=== PATIENT | female | born 1985 | race Caucasian/White ===

== ENCOUNTER 2017-01-19 03:54 | Inpatient (IN) | payer BC, MEDICAID ==
[~2017-01-19] VITALS: Ht 154.9 cm; Wt 80.7 kg
[2017-01-19 04:32] VITALS: BP 139/89; PULSE 90; RESP 18
[2017-01-19] MEDS ORDERED: PRENAT PO (04:34)
[2017-01-19] MEDS ORDERED: FERR134T PO (04:34)
--- NOTE | 2017-01-19 04:42 | TRIAGE ---
OB Triage Datetime Report Generated by CPN: 01/19/2017 04:42 Datetime: 01/19/2017 04:13 Assessment Type: Triage Maternal Assessment Level of Consciousness: Fully Conscious DTR's/Clonus: DTRs 1+; No Clonus Headache: Denies Blurred Vision: No Respiratory Effort: Unlabored Breath Sounds, Left: Clear and Equal Breath Sounds, Right: Clear and Equal Nausea/Vomiting: Present (Annotations: NAUSEA, NO VOMITING) RUQ Epigastric Pain: Denies Lower Extremities Edema: None Degree: None Upper Extremities Edema: None Degree: None Facial Edema: None Fall Risk Assessment History of Falling: (0) No Secondary Diagnosis: (0) No Ambulatory Aid: (0) Bedrest/Nurse Assist IV Therapy: (0) No Gait: (10) Weak Mental Status: (0) Oriented to Own Ability Fall Score: 10 Fall Risk Score Definition: No Risk: No action required Datetime: 01/19/2017 04:11 Time of Arrival: 01/19/2017 03:48 EGA: 39.6 Arrived By: Wheelchair Arrived From: Home Chief Complaint: [facility] SINCE 129 Movement: Present Contractions: Regular Time Contractions Began: 01/19/2017 01:30 Contractions: Q4-6 MIN Rupture of Membranes: Unsure Vaginal Bleeding: None Vaginal Discharge: Denies Recent Sexual Intercouse: Denies Abdominal Trauma: Not Applicable Patient Complaints: Contractions; Back Pain Time Provider Notified: 01/19/2017 04:20 Provider Notified: Dr Sotelo Initial Plan: VS, EFM, SVE Vaginal Exam Dilatation (cms): 2.5 Effacement (%): 90 Station: -2 Exam By: Dilshad PHILLIP Vaginal Bleeding: None Cervix, Consistency: Soft Cervix, Position: Midposition Presentation 'A': Cephalic
[2017-01-19] MEDS ORDERED: METHYLERGONOVINE 0.2 MG INJ IM PRN ×2 (05:00→15:00)
[2017-01-19] MEDS ORDERED: AMPICILLIN 2 GM/NS (PMX) 100 ML IV ONE (05:00)
[2017-01-19] MEDS ORDERED: BUTORPHANOL 2 MG INJ IV PRN (05:00)
[2017-01-19] MEDS ORDERED: LACTATED RINGER'S 1,000 ML IV PRN (05:00)
[2017-01-19] MEDS ORDERED: IBUPROFEN 600 MG TAB PO PRN (05:00)
[2017-01-19] MEDS ORDERED: CARBOPROST 250 MCG INJ IM PRN ×2 (05:00→15:00)
[2017-01-19] MEDS ORDERED: OXYTOCIN 30 UNITS/LR 500 ML IV SCH ×2 (05:00)
[2017-01-19] MEDS ORDERED: OXYTOCIN 30 UNITS/LR 500 ML IV PRN ×3 (05:00→15:00)
[2017-01-19] MEDS ORDERED: MISOPROSTOL 200 MCG TAB PR PRN ×2 (05:00→15:00)
[2017-01-19] MEDS ORDERED: LIDOCAINE 1% (MPF) 30 ML INJ INJ PRN (05:00)
[2017-01-19 05:04] LABS: ADD SCAN DIFF NO
[2017-01-19 05:08] LABS: ADD UMIC YES; URINE BILIRUBIN (Dip) NEGATIVE (NEGATIVE); URINE BLOOD (Dip) 3+ (NEGATIVE); URINE COLOR YELLOW (YELLOW); URINE GLUCOSE (Dip) NEGATIVE (NEGATIVE); URINE KETONES (Dip) 3+ (NEGATIVE); URINE LEUKOCYTE ESTERASE (Dip) TRACE (NEGATIVE); URINE NITRITE (Dip) NEGATIVE (NEGATIVE); URINE TOTAL PROTEIN (Dip) NEGATIVE (NEGATIVE); URINE UROBILINOGEN (Dip) 1.0 E.U./dL (0.1-1.0)
[2017-01-19 05:09] LABS: BASOPHIL # 0.1 10^3/ul (0.0-0.1); BASOPHILS % 0.8 % (0.0-2.0); EOSINOPHILS # 0.2 10^3/ul (0.0-0.5); EOSINOPHILS % 1.3 % (0.0-7.0); HEMATOCRIT 38.1 % (37.0-47.0); LYMPHOCYTES # 2.9 10^3/ul (0.8-2.9); LYMPHOCYTES % 19.4 % (15.0-51.0); MEAN CORPUSCULAR HEMOGLOBIN 29.1 pg (29.0-33.0); MEAN CORPUSCULAR HGB CONC 34.1 g/dl (32.0-37.0); MEAN CORPUSCULAR VOLUME 85.2 fl (82.0-101.0); MEAN PLATELET VOLUME 10.5 fl (7.4-10.4); MONOCYTE # 0.9 10^3/ul (0.3-0.9); MONOCYTES % 5.8 % (0.0-11.0); NEUTROPHILS % 72.4 % (39.0-77.0); PLATELET COUNT 287 10^3/UL (140-415); RED BLOOD COUNT 4.47 10^6/ul (4.20-5.40); RED CELL DISTRIBUTION WIDTH 14.3 % (11.5-14.5); WHITE BLOOD COUNT 15.2 10^3/ul (4.8-10.8)
[2017-01-19 05:17] LABS: INR 0.92; PROTIME 12.4 Sec (12.2-14.2)
[2017-01-19 05:17] LABS: BACTERIA,URINE MANY; MUCUS,URINE MODERATE; SQUAMOUS EPITHELIAL CELL,UR MODERATE; URINE RBCS 0-2 /HPF (0)
[2017-01-19 05:18] LABS: PARTIAL THROMBOPLASTIN TIME 27.6 Sec (25.0-35.0)
[2017-01-19 05:22] LABS: BARBITURATES Negative (NEGATIVE)
[2017-01-19 05:23] LABS: CANNABINOIDS Negative (NEGATIVE)
[2017-01-19 05:27] LABS: ALANINE AMINOTRANSFERASE 23 IU/L (13-69); ALBUMIN 3.7 g/dl (3.3-4.9); ALBUMIN/GLOBULIN RATIO 0.97; ALKALINE PHOSPHATASE 230 IU/L (42-121); ANION GAP 12 (8-16); ASPARTATE AMINO TRANSFERASE 17 IU/L (15-46); BILIRUBIN,INDIRECT 0.2 mg/dl (0-1.1); BILIRUBIN,TOTAL 0.2 mg/dl (0.2-1.3); BLOOD UREA NITROGEN 6 mg/dl (7-20); CALCIUM 9.4 mg/dl (8.4-10.2); CARBON DIOXIDE 20 mmol/L (21-31); CHLORIDE 110 mmol/L (97-110); CREATININE 0.47 mg/dl (0.44-1.00); GLUCOSE 94 mg/dl (70-220); POTASSIUM 3.6 mmol/L (3.5-5.1); SODIUM 138 mmol/L (135-144); TOTAL PROTEIN 7.5 g/dl (6.1-8.1)
[2017-01-19 05:30] LABS: BENZODIAZEPINES Negative (NEGATIVE); COCAINE Negative (NEGATIVE); OPIATES Negative (NEGATIVE)
[2017-01-19] MEDS ORDERED: FENTAnyl 2MCG/ML-ROPIV 0.2% 100 ML ONE (05:44)
--- NOTE | 2017-01-19 05:44 | HP ---
Date/Time of Note Date/Time of Note DATE: 01/19/17 TIME: 05:43 OB - History Hx of Present Free Text/Dictation Presented with contractions IUP at 39 weeks and 6 days she was noted to be 2-3/90/-2 GBS negative care in [place] with Dr. Robertson and then with Dr. Estelita Ambriz Records not available. will be obtained in am Denies any complications during her course Last Menstrual Period: Jan 20, 2017 : 1 Para: 0 Care: Limited Care Obstetrical Complications: None Past Family/Social History * Past Medical, Surgical, Family and Obstetric Histories reviewed from chart. Blood Type: A+ Rubella: immune RPR/VDRL: Negative GBS Status: Negative HBsAG: Negative OB Admission Exam Vital Signs Vital Signs Vital Signs Date Time Temp Pulse Resp B/P Pulse Ox O2 Delivery O2 Flow Rate FiO2 01/19/17 04:32 97.9 90 18 139/89 Room Air Physical Exam HEENT: WNL Abdomen: WNL Extremities: Normal Reflexes: Normal Cervical Dilatation: 2cm Effacement: 100% Station: -2 Membranes: Intact Heart Rate: 120's Accelerations: Accelerations Present Decelerations: No Decelerations Varibility: Moderate Contractions on Admission: < 5 Minutes Apart Intensity: Moderate Last 72 hours Lab Results CBC & BMP 01/19/17 04:48 Liver Function Test 01/19/17 04:48 Alanine Aminotransferase (ALT/SGPT) 23 Albumin 3.7 Alkaline Phosphatase 230 H Aspartate Amino Transf (AST/SGOT) 17 Direct Bilirubin 0.00 Total Protein 7.5 OB Assessment/Plan Other Assessment: early labor GBS negative Admit Plan: Expectant Management Other plan: Epidural when patient requests Anticipate SRIKANTH BONILLA MD Jan 19, 2017 05:44
[2017-01-19] MEDS: LACTATED RINGER'S 1,000 ML IV SCH ×2 (05:56→13:29)
[2017-01-19] MEDS ORDERED: NALOXONE (0.4 MG/ML) INJ IV PRN (06:00)
[2017-01-19] MEDS ORDERED: DIPHENHYDRAMINE 50 MG INJ IV PRN (06:00)
[2017-01-19] MEDS ORDERED: ONDANSETRON 4 MG INJ IV PRN (06:00)
[2017-01-19] MEDS ORDERED: FENTAnyl 2MCG/ML-ROPIV 0.2% 100 ML BAG EPI SCH (06:00)
[2017-01-19] MEDS ORDERED: AMPICILLIN 1 GM/NS (PMX) 50 ML IV SCH (09:00)
--- NOTE | 2017-01-19 14:50 | LDN ---
Date/Time of Note Date/Time of Note DATE: 01/19/17 TIME: 14:47 Delivery Summary January 19, 2017 Spontaneous vaginal delivery note Placenta Delivered: Spontaneously Meconium: Thick Episiotomy: No Perineal laceration: 1 Laceration repair: 2 O chromic cat gut Anesthesia type: Epidural Estimated blood loss: 200 Sponge & Needle done & correct: Yes All needle counts correct: Yes Any foreign bodies felt in the: No Problems: Infant Delivery Information Sex Sex: female Apgars 1 Minute: 9 5 Minute: 9 Suctioning Nose & mouth suctioned at hood: Yes Delee suction performed: No Umbilical Cord Umbilical cord with: 3 Vessels Cord presentations: no nuchal cord Cord Blood was obtained: Yes Mother & Baby Disposition Disposition Mom & Baby to Maternity; Good: Yes Mom transferred to: Med/Surg SANTOS CANAS MD Jan 19, 2017 14:50
[2017-01-19] MEDS ORDERED: SENNA/DOCUSATE NA (8.6MG/50MG) TAB PO PRN (15:00)
[2017-01-19] MEDS ORDERED: DIBUCAINE 1% 30 GM OINT PR PRN (15:00)
[2017-01-19] MEDS ORDERED: LANOLIN 7 GM TUBE TOP PRN (15:00)
[2017-01-19] MEDS ORDERED: ACETAMINOPHEN 500 MG TAB PO PRN (15:00)
[2017-01-19] MEDS ORDERED: OXYCODONE/ASPIRIN (4.88/325) TAB PO PRN ×2 (15:00)
[2017-01-19] MEDS: OXYTOCIN 30 UNITS/LR 500 ML IV SCH ×2 (15:22→19:30)
[2017-01-19 16:15] VITALS: BP 136/83; PULSE 94; RESP 20
[2017-01-19 16:52] VITALS: BP 142/87; PULSE 100; RESP 20
[2017-01-19] MEDS: BENZOCAINE 20% 56 ML SPRAY TOP PRN (17:14)
[2017-01-19] MEDS: WITCH HAZEL/GLYCERIN PAD PR PRN (17:14)
[2017-01-19 17:30] VITALS: BP 135/84; PULSE 94; RESP 20
[2017-01-19 19:31] VITALS: BP 122/59; PULSE 88; RESP 18
[2017-01-20 03:35] VITALS: BP 115/78; PULSE 93; RESP 18
[2017-01-20 08:00] VITALS: BP 104/71; PULSE 86; RESP 17
[2017-01-20 08:17] LABS: ADD SCAN DIFF NO
[2017-01-20 08:34] LABS: BASOPHIL # 0.1 10^3/ul (0.0-0.1); BASOPHILS % 0.4 % (0.0-2.0); EOSINOPHILS # 0.3 10^3/ul (0.0-0.5); EOSINOPHILS % 1.5 % (0.0-7.0); HEMATOCRIT 34.1 % (37.0-47.0); HEMOGLOBIN 11.2 g/dl (12.0-16.0); LYMPHOCYTES % 19.9 % (15.0-51.0); MEAN CORPUSCULAR HEMOGLOBIN 28.9 pg (29.0-33.0); MEAN CORPUSCULAR HGB CONC 32.8 g/dl (32.0-37.0); MEAN CORPUSCULAR VOLUME 87.9 fl (82.0-101.0); MEAN PLATELET VOLUME 10.5 fl (7.4-10.4); MONOCYTE # 1.2 10^3/ul (0.3-0.9); NEUTROPHIL # 14.4 10^3/ul (1.6-7.5); NEUTROPHILS % 71.7 % (39.0-77.0); PLATELET COUNT 245 10^3/UL (140-415); RED BLOOD COUNT 3.88 10^6/ul (4.20-5.40); RED CELL DISTRIBUTION WIDTH 14.6 % (11.5-14.5); WHITE BLOOD COUNT 20.1 10^3/ul (4.8-10.8)
[2017-01-20] MEDS: MULTIVIT/MIN/FOLATE/IRON/PREN TAB PO SCH (09:19)
[2017-01-20 12:00] VITALS: BP 128/84; PULSE 77; RESP 18
[2017-01-20 13:31] LABS: RUBELLA ANTIBODY - IGG 6.04 index
[2017-01-20 16:34] VITALS: BP 127/68; PULSE 82; RESP 16
[2017-01-20 19:40] VITALS: BP 124/69; RESP 19
[2017-01-21] MEDS: IBUPROFEN 600 MG TAB PO PRN ×2 (00:07→05:54)
[2017-01-21 04:43] VITALS: BP 121/72; PULSE 70; RESP 19
--- NOTE | 2017-01-21 07:41 | PD.PPDC ---
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
--- NOTE | 2017-01-21 07:42 | DS ---
Date/Time of Note Date/Time of Note DATE: 01/21/17 TIME: 07:42 Obstetrical Discharge Record Final Diagnosis Final Diagnosis: Term delivered Vaginal Delivery Obstetrical Delivery: Spontaneous Complications Rupture of Membranes: No Condition on Discharge Physical Assessment Last Vitals: T 98.4 BP 121/72 P 70 R 19 Voiding: Yes Bowel Movement: Yes Breast: Filling Fundus: Firm Calf Tenderness: No Patient Condition: Good ELSA LUO MD Jan 21, 2017 07:42
[2017-01-21 08:15] VITALS: BP 120/60; PULSE 83; RESP 18
[2017-01-21] MEDS: WITCH HAZEL/GLYCERIN PAD PR PRN (08:34)
[2017-01-21] MEDS: BENZOCAINE 20% 56 ML SPRAY TOP PRN (08:34)
[2017-01-21] MEDS: MULTIVIT/MIN/FOLATE/IRON/PREN TAB PO SCH (08:35)
[2017-01-21] MEDS ORDERED: DIPHTH/TET/ACEL PERTUSS (ADULT) 0.5 ML VIAL IM* ONE (09:00)
== END 2017-01-21 12:40 | disposition home or self-care (01) | DRG 775 ==
LOC: OBT 03:54 → L-D 03:55 → OBT 04:25 → L-D 04:26 → PP1 16:13
PROVIDERS: ADMIT Obstetrics & Gynecology Obstetrics; ATTEND Obstetrics & Gynecology Obstetrics
PROC: 10E0XZZ Delivery of Products of Conception, External Approach (ICD-10-PCS; principal; 2017-01-19)
PROC: 0HQ9XZZ Repair Perineum Skin, External Approach (ICD-10-PCS; 2017-01-19)
PROC: 3E00X4Z Introduction of Serum, Toxoid and Vaccine into Skin and Mucous Membranes, External Approach (ICD-10-PCS; 2017-01-21)
DX: O70.0 First degree perineal laceration during delivery (principal); E03.9 Hypothyroidism, unspecified; O99.284 Endocrine, nutritional and metabolic diseases complicating childbirth; Z23 Encounter for immunization; Z3A.39 39 weeks gestation of pregnancy; Z37.0 Single live birth
CPT/HCPCS: 62319; 80053; 80307; 81001; 81003; 84560; 85025; 85610; 85730; 86592; 86762; 86900; 86901; 87340; 90715; 99464; G0463; J2590; J3010; J7120

== ENCOUNTER 2018-09-22 13:20 | Inpatient (IN) | END 2018-09-28 13:32 | disposition home or self-care (01) | DRG 833 ==

== ENCOUNTER 2018-11-24 11:27 | Inpatient (IN) | payer BC ==
[~2018-11-24] VITALS: Ht 152.4 cm; Wt 88.0 kg
[~2018-11-24 11:27] MED LIST: FERR134T PO; PRENAT PO
[2018-11-24 11:30] VITALS: Ht 152.4 cm; Wt 88.0 kg
[2018-11-24 11:31] VITALS: BP 119/70; PULSE 101; RESP 20
[2018-11-24] MEDS ORDERED: LACTATED RINGER'S 1,000 ML IV SCH (12:04)
--- NOTE | 2018-11-24 12:14 | TRIAGE ---
OB Triage Datetime Report Generated by CPN: 11/24/2018 12:12 Datetime: 11/24/2018 11:35 Time of Arrival: 11/24/2018 11:15 EGA: 36.4 Arrived By: Ambulatory Arrived From: Home Chief Complaint: LOW ABD PAIN SINCE 0600 Movement: Present Time Contractions Began: 11/24/2018 06:00 Rupture of Membranes: Denies Vaginal Discharge: Denies Recent Sexual Intercouse: Denies Abdominal Trauma: Not Applicable Patient Complaints: Other Time Provider Notified: 11/24/2018 11:36 Provider Notified: DR COSTA Initial Plan: EFM,CALL DR COSTA Datetime: 11/24/2018 11:34 Maternal Assessment Level of Consciousness: Fully Conscious DTR's/Clonus: DTRs 2+; No Clonus Headache: Denies Blurred Vision: No Respiratory Effort: Unlabored; Regular Rhythm; Equal Expansion Breath Sounds, Left: Clear and Equal Breath Sounds, Right: Clear and Equal Nausea/Vomiting: Denies RUQ Epigastric Pain: Denies Facial Edema: None Temperature Route: Axillary Fall Risk Assessment History of Falling: (0) No Secondary Diagnosis: (0) No Ambulatory Aid: (0) Bedrest/Nurse Assist IV Therapy: (0) No Gait: (0) Normal/Bedrest/Immobile Mental Status: (0) Oriented to Own Ability Fall Score: 0 Fall Risk Score Definition: No Risk: No action required Datetime: 09/28/2018 13:00 Stage of : Antepartum Datetime: 09/28/2018 12:00 Stage of : Antepartum Labor Evaluation Frequency: 0 Monitor Mode: External Pain Assessment Pain Scale: 0 Pain Presence: None/Denies Pain Type: N/A Datetime: 09/28/2018 11:00 Stage of : Antepartum Labor Evaluation Frequency: 0 Monitor Mode: External Pain Assessment Pain Scale: 0 Pain Presence: None/Denies Pain Type: N/A Datetime: 09/28/2018 10:00 Stage of : Antepartum Labor Evaluation Frequency: 0 Monitor Mode: External Pain Assessment Pain Scale: 0 Pain Presence: None/Denies Pain Type: N/A Datetime: 09/28/2018 09:00 Stage of : Antepartum Labor Evaluation Frequency: 0 Monitor Mode: External Pain Assessment Pain Scale: 0 Pain Presence: None/Denies Pain Type: N/A Datetime: 09/28/2018 08:45 Comments: US monitor off Datetime: 09/28/2018 08:44 Stage of : Antepartum Labor Evaluation Frequency: 0 Monitor Mode: External Resting Tone O'Donnell: Relaxed Contraction Comments: abdomen soft on palpation Heart Rate FHR Baseline Rate: 140 Monitor Mode: External US Variability: Moderate 6-25 bpm Accelerations: 10X10 Decelerations: None Category: Category I Pain Assessment Pain Scale: 0 Pain Presence: None/Denies Pain Type: N/A Datetime: 09/28/2018 08:15 Stage of : Antepartum Temperature Route: Oral Datetime: 09/28/2018 08:13 Comments: NST STARTED Datetime: 09/28/2018 07:45 Assessment Type: Ongoing Assessment Maternal Assessment Level of Consciousness: Fully Conscious DTR's/Clonus: DTRs 2+; No Clonus Headache: Denies Blurred Vision: No Respiratory Effort: Unlabored; Regular Rhythm; Equal Expansion Breath Sounds, Left: Clear and Equal Breath Sounds, Right: Clear and Equal Nausea/Vomiting: Denies RUQ Epigastric Pain: Denies Lower Extremities Edema: None Degree: None Upper Extremities Edema: None Degree: None Facial Edema: None Fall Risk Assessment History of Falling: (0) No Secondary Diagnosis: (0) No Ambulatory Aid: (0) Bedrest/Nurse Assist IV Therapy: (0) No Gait: (0) Normal/Bedrest/Immobile Mental Status: (0) Oriented to Own Ability Fall Score: 0 Fall Risk Score Definition: No Risk: No action required Datetime: 09/28/2018 07:00 Labor Evaluation Frequency: NONE Monitor Mode: External Resting Tone O'Donnell: Relaxed Pain Presence: None/Denies Pain Type: N/A Datetime: 09/28/2018 06:07 Stage of : Antepartum Temperature Route: IES CRAMPING Labor Evaluation Frequency: NONE Monitor Mode: External Contraction Comments: STATES + FM Pain Presence: None/Denies Datetime: 09/28/2018 06:05 Stage of : Antepartum Datetime: 09/28/2018 05:00 Labor Evaluation Frequency: NONE Monitor Mode: External Resting Tone O'Donnell: Relaxed Pain Presence: None/Denies Pain Type: N/A Pain Assessment Comments: PT SLEEPING WITH EVEN UNLABORED BREATHING Datetime: 09/28/2018 04:00 Labor Evaluation Frequency: NONE Monitor Mode: External Resting Tone O'Donnell: Relaxed Pain Presence: None/Denies Pain Type: N/A Pain Assessment Comments: PT REMAINS ASLEEP WITH EVEN UNLABORED BREATHING Datetime: 09/28/2018 03:00 Labor Evaluation Frequency: NONE Monitor Mode: External Resting Tone O'Donnell: Relaxed Pain Presence: None/Denies Pain Type: N/A Datetime: 09/28/2018 02:00 Labor Evaluation Frequency: NONE Monitor Mode: External Resting Tone O'Donnell: Relaxed Pain Presence: None/Denies Pain Type: N/A Pain Assessment Comments: PT SLEEPING WITH EVEN UNLABORED BREATHING Datetime: 09/28/2018 01:00 Labor Evaluation Frequency: none Monitor Mode: External Resting Tone O'Donnell: Relaxed Pain Presence: None/Denies Pain Type: N/A Pain Assessment Comments: Pt sleeping with even unlabored breathing. Datetime: 09/28/2018 00:28 Stage of : Antepartum Temperature Route: Oral Contraction Comments: PT DENIES CRAMPING Comments: PT STATES + FM Pain Presence: None/Denies Pain Type: N/A Pain Assessment Comments: PT DEIES EPIGASTRC PAIN Vaginal Exam Membrane Status: Intact Vaginal Bleeding: None Datetime: 09/28/2018 00:00 Labor Evaluation Frequency: NONE Monitor Mode: External Resting Tone O'Donnell: Relaxed Pain Presence: None/Denies Pain Type: N/A Datetime: 09/27/2018 23:00 Labor Evaluation Frequency: NONE Monitor Mode: External Resting Tone O'Donnell: Relaxed Pain Presence: None/Denies Pain Type: N/A Datetime: 09/27/2018 22:00 Labor Evaluation Frequency: NONE Monitor Mode: External Pain Presence: None/Denies Pain Type: N/A Datetime: 09/27/2018 21:43 Labor Evaluation Frequency: NONE Monitor Mode: External Resting Tone O'Donnell: Relaxed Heart Rate FHR Baseline Rate: 135 Monitor Mode: External US Variability: Moderate 6-25 bpm Accelerations: 15X15 Decelerations: Variable Comments: AGA Pain Presence: None/Denies Pain Type: N/A Datetime: 09/27/2018 20:52 Monitor Mode: External Monitor Mode: External US Comments: APPLIED FOR NST Datetime: 09/27/2018 20:39 Labor Evaluation Frequency: NONE Monitor Mode: External Resting Tone O'Donnell: Relaxed Pain Presence: None/Denies Pain Type: N/A Datetime: 09/27/2018 19:49 Stage of : Antepartum Assessment Type: Ongoing Assessment Maternal Assessment Level of Consciousness: Fully Conscious DTR's/Clonus: DTRs 2+; No Clonus Headache: Denies Blurred Vision: No Respiratory Effort: Unlabored; Regular Rhythm; Equal Expansion Breath Sounds, Left: Clear and Equal Breath Sounds, Right: Clear and Equal Nausea/Vomiting: Denies RUQ Epigastric Pain: Denies Lower Extremities Edema: None Degree: None Upper Extremities Edema: None Degree: None Facial Edema: None Temperature Route: Oral Fall Risk Assessment History of Falling: (0) No Secondary Diagnosis: (0) No Ambulatory Aid: (0) Bedrest/Nurse Assist IV Therapy: (0) No Gait: (0) Normal/Bedrest/Immobile Mental Status: (0) Oriented to Own Ability Fall Score: 0 Fall Risk Score Definition: No Risk: No action required Monitor Mode: External Contraction Comments: PT DENIES CRAMPING Comments: PT STATES + FM Pain Presence: None/Denies Pain Type: N/A Vaginal Exam Membrane Status: Intact Vaginal Bleeding: None Datetime: 09/27/2018 19:37 Monitor Mode: External Contraction Comments: REAPPLIED Datetime: 09/27/2018 18:21 Labor Evaluation Frequency: none Monitor Mode: External Resting Tone O'Donnell: Relaxed Datetime: 09/27/2018 17:31 Labor Evaluation Frequency: none Monitor Mode: External Resting Tone O'Donnell: Relaxed Datetime: 09/27/2018 16:33 Stage of : Antepartum Temperature Route: Oral Pain Assessment Pain Scale: 0 Pain Presence: None/Denies Pain Type: N/A Datetime: 09/27/2018 16:30 Labor Evaluation Frequency: none Monitor Mode: External Resting Tone O'Donnell: Relaxed Datetime: 09/27/2018 15:30 Labor Evaluation Frequency: none Monitor Mode: External Resting Tone O'Donnell: Relaxed Datetime: 09/27/2018 14:30 Labor Evaluation Frequency: none Monitor Mode: External Resting Tone O'Donnell: Relaxed Datetime: 09/27/2018 13:31 Labor Evaluation Frequency: none Monitor Mode: External Resting Tone O'Donnell: Relaxed Datetime: 09/27/2018 12:30 Labor Evaluation Frequency: none Monitor Mode: External Resting Tone O'Donnell: Relaxed Datetime: 09/27/2018 12:14 Stage of : Antepartum Pain Assessment Pain Scale: 0 Pain Presence: None/Denies Pain Type: N/A Datetime: 09/27/2018 11:29 Labor Evaluation Frequency: none Monitor Mode: External Resting Tone O'Donnell: Relaxed Datetime: 09/27/2018 10:31 Labor Evaluation Frequency: none Monitor Mode: External Resting Tone O'Donnell: Relaxed Datetime: 09/27/2018 09:29 Labor Evaluation Frequency: none Monitor Mode: External Resting Tone O'Donnell: Relaxed Heart Rate FHR Baseline Rate: 140 Monitor Mode: External US FHR Baseline Changes: No Baseline Change Variability: Moderate 6-25 bpm Accelerations: 15X15 Decelerations: Variable Comments: NST completed. Appropriate for GA Datetime: 09/27/2018 08:55 Comments: NST started Datetime: 09/27/2018 07:31 Assessment Type: Ongoing Assessment Maternal Assessment Level of Consciousness: Fully Conscious DTR's/Clonus: DTRs 2+; No Clonus Headache: Denies Blurred Vision: No Respiratory Effort: Unlabored; Regular Rhythm; Equal Expansion Breath Sounds, Left: Clear and Equal Breath Sounds, Right: Clear and Equal Nausea/Vomiting: Denies RUQ Epigastric Pain: Denies Lower Extremities Edema: None Degree: None Upper Extremities Edema: None Degree: None Facial Edema: None Fall Risk Assessment History of Falling: (0) No Secondary Diagnosis: (0) No Ambulatory Aid: (0) Bedrest/Nurse Assist IV Therapy: (0) No Gait: (0) Normal/Bedrest/Immobile Mental Status: (0) Oriented to Own Ability Fall Score: 0 Fall Risk Score Definition: No Risk: No action required Datetime: 09/27/2018 07:30 Labor Evaluation Frequency: none Monitor Mode: External Resting Tone O'Donnell: Relaxed Datetime: 09/27/2018 07:29 Stage of : Antepartum Temperature Route: Oral Pain Assessment Pain Scale: 0 Pain Presence: None/Denies Pain Type: N/A Datetime: 09/27/2018 06:15 Labor Evaluation Frequency: X1 Monitor Mode: External Duration (sec)2399: 50 Resting Tone O'Donnell: Relaxed Pain Presence: None/Denies Datetime: 09/27/2018 05:37 Stage of : Antepartum Maternal Assessment Level of Consciousness: Fully Conscious Headache: Denies Blurred Vision: No Temperature Route: Oral Pain Presence: None/Denies Datetime: 09/27/2018 05:15 Labor Evaluation Frequency: 0 Monitor Mode: External Duration (sec)2399: DENIES Resting Tone O'Donnell: Relaxed Pain Presence: None/Denies Datetime: 09/27/2018 04:15 Labor Evaluation Frequency: 0 Monitor Mode: External Resting Tone O'Donnell: Relaxed Datetime: 09/27/2018 03:15 Labor Evaluation Frequency: 0 Monitor Mode: External Resting Tone O'Donnell: Relaxed Datetime: 09/27/2018 02:15 Labor Evaluation Frequency: 0 Monitor Mode: External Duration (sec)2399: denies Resting Tone O'Donnell: Relaxed Pain Presence: None/Denies Datetime: 09/27/2018 01:15 Labor Evaluation Frequency: 0 Monitor Mode: External Resting Tone O'Donnell: Relaxed Pain Presence: None/Denies Datetime: 09/27/2018 00:15 Labor Evaluation Frequency: 0 Monitor Mode: External Duration (sec)2399: DENIES Resting Tone O'Donnell: Relaxed Pain Presence: None/Denies Datetime: 09/26/2018 23:15 Labor Evaluation Frequency: 0 Monitor Mode: External Duration (sec)2399: DENIES Resting Tone O'Donnell: Relaxed Pain Presence: None/Denies Datetime: 09/26/2018 22:16 Labor Evaluation Frequency: 0 Monitor Mode: External Resting Tone O'Donnell: Relaxed Heart Rate FHR Baseline Rate: 145 Monitor Mode: External US Variability: Moderate 6-25 bpm Accelerations: 15X15 Decelerations: Variable Comments: NST DONE APPROPRIATE FOR GA 28 WEEKS. Pain Presence: None/Denies Datetime: 09/26/2018 21:39 Labor Evaluation Frequency: 0 Monitor Mode: External Resting Tone O'Donnell: Relaxed Monitor Mode: External US Comments: PLACED NST STARTED. Pain Presence: None/Denies Datetime: 09/26/2018 21:00 Labor Evaluation Frequency: 0 Monitor Mode: External Duration (sec)2399: DENIES Resting Tone O'Donnell: Relaxed Pain Presence: None/Denies Datetime: 09/26/2018 20:00 Labor Evaluation Frequency: 0 Monitor Mode: External Duration (sec)2399: DENIES Resting Tone O'Donnell: Relaxed Contraction Comments: ABDOMEN SOFT UPON PALPATION. Pain Presence: None/Denies Datetime: 09/26/2018 19:52 Stage of : Antepartum Assessment Type: Ongoing Assessment Maternal Assessment Level of Consciousness: Fully Conscious DTR's/Clonus: DTRs 2+; No Clonus Headache: Denies Blurred Vision: No Respiratory Effort: Unlabored; Regular Rhythm; Equal Expansion Breath Sounds, Left: Clear and Equal Breath Sounds, Right: Clear and Equal Nausea/Vomiting: Denies RUQ Epigastric Pain: Denies Lower Extremities Edema: None Degree: None Upper Extremities Edema: None Degree: None Facial Edema: None Temperature Route: Oral Fall Risk Assessment History of Falling: (0) No Secondary Diagnosis: (0) No Ambulatory Aid: (0) Bedrest/Nurse Assist IV Therapy: (0) No Gait: (0) Normal/Bedrest/Immobile Mental Status: (0) Oriented to Own Ability Fall Score: 0 Fall Risk Score Definition: No Risk: No action required Pain Presence: None/Denies Datetime: 09/26/2018 19:00 Stage of : Antepartum Labor Evaluation Frequency: 0 Monitor Mode: External Resting Tone O'Donnell: Relaxed Pain Assessment Pain Scale: 0 Pain Presence: None/Denies Pain Type: N/A Datetime: 09/26/2018 18:00 Labor Evaluation Frequency: x2 Monitor Mode: External Duration (sec)2399: 60 Quality: Mild Resting Tone O'Donnell: Relaxed Pain Assessment Pain Scale: 0 Pain Presence: None/Denies Pain Type: N/A Datetime: 09/26/2018 17:00 Labor Evaluation Frequency: 0 Monitor Mode: External Resting Tone O'Donnell: Relaxed Datetime: 09/26/2018 16:11 Stage of : Antepartum Temperature Route: Oral Pain Assessment Pain Scale: 0 Pain Goal: 0 Datetime: 09/26/2018 16:00 Labor Evaluation Frequency: 0 Monitor Mode: External Pattern: Normal: <= 5 Contractions in 10 Minutes Datetime: 09/26/2018 15:00 Labor Evaluation Frequency: 0 Monitor Mode: External Resting Tone O'Donnell: Relaxed Pain Assessment Pain Scale: 0 Pain Presence: None/Denies Pain Type: N/A Pain Goal: 0 Datetime: 09/26/2018 14:00 Labor Evaluation Frequency: 0 Monitor Mode: External Resting Tone O'Donnell: Relaxed Pain Assessment Pain Scale: 0 Pain Presence: None/Denies Pain Type: N/A Pain Goal: 0 Datetime: 09/26/2018 13:00 Labor Evaluation Frequency: 0 Monitor Mode: External Resting Tone O'Donnell: Relaxed Datetime: 09/26/2018 12:30 Stage of : Antepartum Datetime: 09/26/2018 12:00 Stage of : Antepartum Labor Evaluation Frequency: 0 Monitor Mode: External Resting Tone O'Donnell: Relaxed Datetime: 09/26/2018 11:50 Stage of : Antepartum Temperature Route: Oral Datetime: 09/26/2018 11:43 Stage of : Antepartum Datetime: 09/26/2018 11:00 Stage of : Antepartum Labor Evaluation Frequency: x3 Monitor Mode: External Duration (sec)2399: 60 Quality: Mild Pattern: Normal: <= 5 Contractions in 10 Minutes Resting Tone O'Donnell: Relaxed Heart Rate FHR Baseline Rate: 145 Monitor Mode: External US FHR Baseline Changes: No Baseline Change Variability: Moderate 6-25 bpm Accelerations: 15X15 Decelerations: None Category: Category I Pain Assessment Pain Scale: 0 Pain Presence: None/Denies Pain Type: N/A Datetime: 09/26/2018 10:13 Stage of : Antepartum Monitor Mode: External Monitor Mode: External US Comments: NST started Datetime: 09/26/2018 10:00 Stage of : Antepartum Labor Evaluation Frequency: 0 Monitor Mode: External Resting Tone O'Donnell: Relaxed Pain Assessment Pain Scale: 0 Pain Presence: None/Denies Pain Type: N/A Datetime: 09/26/2018 09:30 Stage of : Antepartum Datetime: 09/26/2018 09:05 Stage of : Antepartum Datetime: 09/26/2018 09:04 Stage of : Antepartum Datetime: 09/26/2018 09:00 Stage of : Antepartum Labor Evaluation Frequency: x1 Monitor Mode: External Duration (sec)2399: 70 Quality: Mild Resting Tone O'Donnell: Relaxed Pain Assessment Pain Scale: 0 Pain Presence: None/Denies Pain Type: N/A Datetime: 09/26/2018 08:06 Stage of : Antepartum Assessment Type: Ongoing Assessment Maternal Assessment Level of Consciousness: Fully Conscious DTR's/Clonus: DTRs 2+; No Clonus Headache: Denies Blurred Vision: No Respiratory Effort: Unlabored; Regular Rhythm; Equal Expansion Breath Sounds, Left: Clear and Equal Breath Sounds, Right: Clear and Equal Nausea/Vomiting: Denies RUQ Epigastric Pain: Denies Lower Extremities Edema: None Degree: None Upper Extremities Edema: None Degree: None Facial Edema: None Temperature Route: Oral Fall Risk Assessment History of Falling: (0) No Secondary Diagnosis: (0) No Ambulatory Aid: (0) Bedrest/Nurse Assist IV Therapy: (0) No Gait: (0) Normal/Bedrest/Immobile Mental Status: (0) Oriented to Own Ability Fall Score: 0 Fall Risk Score Definition: No Risk: No action required Pain Assessment Pain Scale: 0 Pain Presence: None/Denies Pain Type: N/A Datetime: 09/26/2018 08:00 Stage of : Antepartum Labor Evaluation Frequency: 0 Monitor Mode: External Resting Tone O'Donnell: Relaxed Datetime: 09/26/2018 07:00 Labor Evaluation Frequency: 0 Monitor Mode: External Duration (sec)2399: denies Resting Tone O'Donnell: Relaxed Pain Presence: None/Denies Datetime: 09/26/2018 06:00 Labor Evaluation Frequency: 0 Monitor Mode: External Duration (sec)2399: denies Resting Tone O'Donnell: Relaxed Pain Presence: None/Denies Datetime: 09/26/2018 05:51 Maternal Assessment Level of Consciousness: Fully Conscious Headache: Denies Blurred Vision: No Datetime: 09/26/2018 05:00 Labor Evaluation Frequency: 0 Monitor Mode: External Duration (sec)2399: denies Resting Tone O'Donnell: Relaxed Pain Presence: None/Denies Datetime: 09/26/2018 04:00 Labor Evaluation Frequency: 0 Monitor Mode: External Resting Tone O'Donnell: Relaxed Datetime: 09/26/2018 03:00 Labor Evaluation Frequency: 0 Monitor Mode: External Duration (sec)2399: sleeping Resting Tone O'Donnell: Relaxed Datetime: 09/26/2018 02:00 Labor Evaluation Frequency: 0 Monitor Mode: External Resting Tone O'Donnell: Relaxed Pain Presence: None/Denies Datetime: 09/26/2018 01:00 Labor Evaluation Frequency: 0 Monitor Mode: External Duration (sec)2399: denies Resting Tone O'Donnell: Relaxed Pain Presence: None/Denies Datetime: 09/26/2018 00:00 Labor Evaluation Frequency: 0 Monitor Mode: External Duration (sec)2399: denies Resting Tone O'Donnell: Relaxed Pain Presence: None/Denies Datetime: 09/25/2018 23:54 Stage of : Antepartum Datetime: 09/25/2018 23:00 Labor Evaluation Frequency: 0 Monitor Mode: External Duration (sec)2399: denies Resting Tone O'Donnell: Relaxed Pain Presence: None/Denies Datetime: 09/25/2018 22:05 Stage of : Antepartum Datetime: 09/25/2018 22:00 Contraction Comments: pt denies uc's. Datetime: 09/25/2018 21:45 Stage of : Antepartum Datetime: 09/25/2018 21:35 Stage of : Antepartum Datetime: 09/25/2018 20:53 Labor Evaluation Frequency: 0 Monitor Mode: External Duration (sec)2399: DENIES Resting Tone O'Donnell: Relaxed Heart Rate FHR Baseline Rate: 145 Monitor Mode: External US Variability: Moderate 6-25 bpm Accelerations: 15X15 Decelerations: None Comments: NST DONE APPROPRIATE FOR GA 28 WEEKS. Pain Presence: None/Denies Datetime: 09/25/2018 20:16 Monitor Mode: External Contraction Comments: PLACED NST STARTED. Monitor Mode: External US Comments: PLACED NST STARTED. Datetime: 09/25/2018 20:06 Stage of : Antepartum Assessment Type: Ongoing Assessment Maternal Assessment Level of Consciousness: Fully Conscious DTR's/Clonus: DTRs 2+; No Clonus Headache: Denies Blurred Vision: No Respiratory Effort: Unlabored; Regular Rhythm; Equal Expansion Breath Sounds, Left: Clear and Equal Breath Sounds, Right: Clear and Equal Nausea/Vomiting: Denies RUQ Epigastric Pain: Denies Lower Extremities Edema: None Degree: None Upper Extremities Edema: None Degree: None Facial Edema: None Temperature Route: Oral Fall Risk Assessment History of Falling: (0) No Secondary Diagnosis: (0) No Ambulatory Aid: (0) Bedrest/Nurse Assist IV Therapy: (0) No Gait: (0) Normal/Bedrest/Immobile Mental Status: (0) Oriented to Own Ability Fall Score: 0 Fall Risk Score Definition: No Risk: No action required Pain Presence: None/Denies Datetime: 09/25/2018 17:29 Maternal Assessment Level of Consciousness: Fully Conscious Headache: Denies Blurred Vision: No Respiratory Effort: Unlabored Nausea/Vomiting: Denies RUQ Epigastric Pain: Denies Pain Presence: None/Denies Datetime: 09/25/2018 16:27 Stage of : Antepartum Maternal Assessment Level of Consciousness: Fully Conscious Headache: Denies Nausea/Vomiting: Denies RUQ Epigastric Pain: Denies Temperature Route: Oral Resting Tone O'Donnell: Relaxed Vaginal Bleeding: None Datetime: 09/25/2018 15:00 Stage of : Antepartum Labor Evaluation Frequency: 0/hr Monitor Mode: External Pain Presence: None/Denies Datetime: 09/25/2018 13:07 Stage of : Antepartum Labor Evaluation Frequency: 0/hr Monitor Mode: External Resting Tone O'Donnell: Relaxed Heart Rate FHR Baseline Rate: 140 Monitor Mode: External US Variability: Moderate 6-25 bpm Accelerations: 15X15 Decelerations: None Pain Presence: None/Denies Datetime: 09/25/2018 11:58 Monitor Mode: External US Comments: fht's q shift ega 28.0 Pain Presence: None/Denies Pain Assessment Comments: pt. states she is feeling "much better" than when admitted and tolerated clear liquids Datetime: 09/25/2018 11:00 Stage of : Antepartum Labor Evaluation Frequency: 0/hr Monitor Mode: External Pain Location: Abdomen Datetime: 09/25/2018 10:06 Stage of : Antepartum Labor Evaluation Frequency: 0/hr Monitor Mode: External Pain Assessment Pain Scale: 2 Pain Presence: Constant Pain Type: Dull Pain Location: Abdomen Datetime: 09/25/2018 09:01 Stage of : Antepartum Pain Assessment Pain Scale: 2 Pain Presence: Constant Pain Type: Dull Pain Location: Abdomen Datetime: 09/25/2018 08:26 Pain Assessment Pain Scale: 2 Pain Presence: Constant Pain Type: Dull Pain Location: Abdomen Datetime: 09/25/2018 08:05 Stage of : Antepartum Temperature Route: Oral Pain Assessment Pain Scale: 2 Pain Presence: Constant Pain Goal: 2 Datetime: 09/25/2018 07:24 Stage of : Antepartum Datetime: 09/25/2018 07:16 Stage of : Antepartum Assessment Type: Ongoing Assessment Maternal Assessment Level of Consciousness: Fully Conscious Maternal Assessment Level of Consciousness: Fully Conscious DTR's/Clonus: DTRs 2+; No Clonus Headache: Denies Headache: Denies Blurred Vision: No Blurred Vision: No Respiratory Effort: Unlabored; Regular Rhythm; Equal Expansion Respiratory Effort: Unlabored Breath Sounds, Left: Clear and Equal Breath Sounds, Right: Clear and Equal Nausea/Vomiting: Denies Nausea/Vomiting: Denies RUQ Epigastric Pain: Denies Lower Extremities Edema: None Degree: None Upper Extremities Edema: None Degree: None Facial Edema: None Fall Risk Assessment History of Falling: (0) No Secondary Diagnosis: (0) No Ambulatory Aid: (0) Bedrest/Nurse Assist IV Therapy: (20) Yes (Annotations: [id number] at 125ml/hr) Gait: (0) Normal/Bedrest/Immobile Mental Status: (0) Oriented to Own Ability Fall Score: 20 Fall Risk Score Definition: No Risk: No action required Resting Tone O'Donnell: Relaxed Pain Assessment Pain Scale: 2 Pain Presence: Constant Pain Location: Abdomen Pain Relief Measures: Comfort Measures Datetime: 09/25/2018 06:57 Stage of : Antepartum Temperature Route: Oral Datetime: 09/25/2018 06:28 Stage of : Antepartum Datetime: 09/25/2018 06:00 Stage of : Antepartum Temperature Route: Oral Datetime: 09/25/2018 05:05 Stage of : Antepartum Temperature Route: Oral Contraction Comments: PT DENIES CRAMPING Comments: PT STATES + FM Pain Presence: None/Denies Pain Type: N/A Pain Assessment Comments: PT DENIES ANY NEEDS AT THIS TIME Datetime: 09/25/2018 03:30 Stage of : Antepartum Pain Presence: None/Denies Pain Type: N/A Datetime: 09/25/2018 02:00 Stage of : Antepartum Pain Presence: None/Denies Pain Type: N/A Pain Assessment Comments: PT SLEEPING WITH EVEN UNLABORED BREATHING Datetime: 09/25/2018 01:37 Stage of : Antepartum Datetime: 09/25/2018 01:33 Stage of : Antepartum Datetime: 09/24/2018 23:54 Stage of : OB Triage Temperature Route: Oral Contraction Comments: PT DENIES CRAMPNG Comments: PT STATES + FM Pain Presence: None/Denies Datetime: 09/24/2018 23:51 Stage of : Antepartum Datetime: 09/24/2018 21:14 Labor Evaluation Frequency: NONE Monitor Mode: External Resting Tone O'Donnell: Relaxed Heart Rate FHR Baseline Rate: 135 Monitor Mode: External US Variability: Moderate 6-25 bpm Accelerations: 15X15 Decelerations: None Category: Category I Pain Presence: None/Denies Pain Type: N/A Datetime: 09/24/2018 19:40 Stage of : Antepartum Assessment Type: Ongoing Assessment Maternal Assessment Level of Consciousness: Fully Conscious DTR's/Clonus: DTRs 2+; No Clonus Headache: Denies Blurred Vision: No Respiratory Effort: Unlabored; Regular Rhythm; Equal Expansion Breath Sounds, Left: Clear and Equal Breath Sounds, Right: Clear and Equal Nausea/Vomiting: Denies RUQ Epigastric Pain: Denies Lower Extremities Edema: None Degree: None Upper Extremities Edema: None Degree: None Facial Edema: None Temperature Route: Oral Fall Risk Assessment History of Falling: (0) No Secondary Diagnosis: (0) No Ambulatory Aid: (0) Bedrest/Nurse Assist IV Therapy: (0) No Gait: (0) Normal/Bedrest/Immobile Mental Status: (0) Oriented to Own Ability Fall Score: 0 Fall Risk Score Definition: No Risk: No action required Monitor Mode: External Contraction Comments: PT DENIES CRAMPING Monitor Mode: External US Comments: PT STATES + FM Pain Presence: None/Denies Pain Type: N/A Vaginal Bleeding: None Datetime: 09/24/2018 19:39 Monitor Mode: External Resting Tone O'Donnell: Relaxed Contraction Comments: applied Monitor Mode: External US Comments: applied for nst Datetime: 09/24/2018 17:47 Stage of : Antepartum Maternal Assessment Level of Consciousness: Fully Conscious Headache: Denies Nausea/Vomiting: Hx of Nausea/Vomiting Labor Evaluation Frequency: 0/hr Monitor Mode: External Pain Presence: Constant Pain Assessment Comments: unchanged Vaginal Bleeding: None Datetime: 09/24/2018 16:57 Maternal Assessment Level of Consciousness: Fully Conscious Headache: Denies Blurred Vision: No Respiratory Effort: Unlabored Nausea/Vomiting: Hx of Nausea/Vomiting RUQ Epigastric Pain: Present Pain Assessment Pain Scale: 4 Pain Presence: Chronic Pain Type: Dull Datetime: 09/24/2018 16:53 Stage of : Antepartum Maternal Assessment Level of Consciousness: Fully Conscious Headache: Denies Nausea/Vomiting: Hx of Nausea/Vomiting Labor Evaluation Frequency: 0/hr Monitor Mode: External Pain Presence: Constant Vaginal Bleeding: None Datetime: 09/24/2018 15:14 Respiratory Effort: Unlabored Datetime: 09/24/2018 15:02 Stage of : Antepartum Maternal Assessment Level of Consciousness: Fully Conscious Headache: Denies Nausea/Vomiting: Hx of Nausea/Vomiting Labor Evaluation Frequency: 0/hr Monitor Mode: External Pain Presence: Constant Vaginal Bleeding: None Datetime: 09/24/2018 14:07 Stage of : Antepartum Maternal Assessment Level of Consciousness: Fully Conscious Headache: Denies Nausea/Vomiting: Hx of Nausea/Vomiting (Annotations: none at this time) Labor Evaluation Frequency: 0/hr Monitor Mode: External Resting Tone O'Donnell: Relaxed Contraction Comments: pt. denies Pain Presence: Constant Vaginal Bleeding: None Datetime: 09/24/2018 12:40 Stage of : Antepartum Resting Tone O'Donnell: Relaxed Contraction Comments: pt. denies Pain Assessment Pain Scale: 3 Pain Presence: Chronic Pain Type: Dull Pain Assessment Comments: pt. states she "feels Better". Datetime: 09/24/2018 12:04 Maternal Assessment Level of Consciousness: Fully Conscious Headache: Denies Blurred Vision: No Respiratory Effort: Unlabored Nausea/Vomiting: Denies RUQ Epigastric Pain: Present Datetime: 09/24/2018 11:40 Resting Tone O'Donnell: Relaxed Pain Presence: Constant Pain Assessment Comments: unchanged Vaginal Exam Membrane Status: Intact Vaginal Bleeding: None Datetime: 09/24/2018 11:02 Stage of : Antepartum Labor Evaluation Frequency: 0/hr Monitor Mode: External Pain Assessment Pain Scale: 5 Pain Presence: Chronic Pain Assessment Comments: same. resting and denies ditress or N_V at this time Datetime: 09/24/2018 10:05 Stage of : Antepartum Maternal Assessment Level of Consciousness: Fully Conscious Headache: Denies Nausea/Vomiting: Hx of Nausea/Vomiting RUQ Epigastric Pain: Present Labor Evaluation Frequency: 0/hr Monitor Mode: External Variability: Moderate 6-25 bpm Pain Assessment Pain Scale: 5 Pain Presence: Chronic Datetime: 09/24/2018 09:18 Respiratory Effort: Unlabored Resting Tone O'Donnell: Relaxed Comments: nst q shift Pain Assessment Pain Scale: 5 Pain Presence: Chronic Pain Type: Dull Pain Assessment Comments: pain unchanged Datetime: 09/24/2018 08:17 Stage of : Antepartum Maternal Assessment Level of Consciousness: Fully Conscious Headache: Denies Nausea/Vomiting: Hx of Nausea/Vomiting RUQ Epigastric Pain: Present Labor Evaluation Frequency: 0/hr Monitor Mode: External Heart Rate FHR Baseline Rate: 140 Monitor Mode: External US Variability: Moderate 6-25 bpm Accelerations: 15X15 Decelerations: None Pain Assessment Pain Scale: 5 Pain Presence: Chronic Pain Type: Burning Datetime: 09/24/2018 07:33 Stage of : Antepartum Maternal Assessment Level of Consciousness: Fully Conscious Headache: Denies Blurred Vision: No Nausea/Vomiting: Hx of Nausea/Vomiting RUQ Epigastric Pain: Present Temperature Route: Oral Pain Assessment Pain Scale: 5 Pain Presence: Chronic Pain Type: Burning Pain Assessment Comments: epigastric area. rn will call md w/ lab results Datetime: 09/24/2018 07:29 Heart Rate FHR Baseline Rate: 125 Monitor Mode: External US Variability: Moderate 6-25 bpm Accelerations: 15X15 Decelerations: None Datetime: 09/24/2018 07:10 Stage of : Antepartum Maternal Assessment Level of Consciousness: Fully Conscious Headache: Denies Respiratory Effort: Unlabored Nausea/Vomiting: Hx of Nausea/Vomiting RUQ Epigastric Pain: Present Resting Tone O'Donnell: Relaxed Monitor Mode: External US Pain Presence: None/Denies Datetime: 09/24/2018 06:10 Labor Evaluation Frequency: 0 Monitor Mode: External Duration (sec)2399: denies Resting Tone O'Donnell: Relaxed Heart Rate FHR Baseline Rate: 135 Monitor Mode: External US Variability: Moderate 6-25 bpm Accelerations: 15X15 Decelerations: None Category: Category I Datetime: 09/24/2018 05:10 Labor Evaluation Frequency: 0 Monitor Mode: External Duration (sec)2399: DENIES Resting Tone O'Donnell: Relaxed Heart Rate FHR Baseline Rate: 155 Monitor Mode: External US Variability: Moderate 6-25 bpm Accelerations: 10X10 Decelerations: None Category: Category I Pain Presence: None/Denies Datetime: 09/24/2018 04:11 Stage of : Antepartum Assessment Type: Ongoing Assessment Maternal Assessment Level of Consciousness: Fully Conscious DTR's/Clonus: DTRs 2+; No Clonus Headache: Denies Blurred Vision: No Respiratory Effort: Unlabored; Regular Rhythm; Equal Expansion Breath Sounds, Left: Clear and Equal Breath Sounds, Right: Clear and Equal Nausea/Vomiting: Denies RUQ Epigastric Pain: Denies Lower Extremities Edema: None Degree: None Upper Extremities Edema: None Degree: None Facial Edema: None Temperature Route: Oral Fall Risk Assessment History of Falling: (0) No Secondary Diagnosis: (0) No Ambulatory Aid: (0) Bedrest/Nurse Assist IV Therapy: (0) No Gait: (0) Normal/Bedrest/Immobile Mental Status: (0) Oriented to Own Ability Fall Score: 0 Fall Risk Score Definition: No Risk: No action required Pain Presence: Intermittent Pain Type: Sharp Pain Location: Back Pain Relief Measures: Comfort Measures Datetime: 09/24/2018 03:36 Quality: Mild Pattern: Normal: <= 5 Contractions in 10 Minutes Resting Tone O'Donnell: Relaxed Heart Rate FHR Baseline Rate: 140 Monitor Mode: External US Datetime: 09/24/2018 02:32 Stage of : Antepartum Monitor Mode: External Quality: Mild Pattern: Normal: <= 5 Contractions in 10 Minutes Resting Tone O'Donnell: Relaxed Heart Rate FHR Baseline Rate: 130 Monitor Mode: External US Datetime: 09/24/2018 02:05 Monitor Mode: External Quality: Mild Resting Tone O'Donnell: Relaxed Heart Rate FHR Baseline Rate: 130 Monitor Mode: External US FHR Baseline Changes: No Baseline Change Variability: Moderate 6-25 bpm Accelerations: 15X15 Decelerations: None Category: Category I Datetime: 09/24/2018 01:04 Stage of : Antepartum Maternal Assessment Level of Consciousness: Fully Conscious Headache: Denies Blurred Vision: No Nausea/Vomiting: Denies Facial Edema: None Monitor Mode: External Quality: Mild Resting Tone O'Donnell: Relaxed Heart Rate FHR Baseline Rate: 140 Monitor Mode: External US FHR Baseline Changes: No Baseline Change Variability: Moderate 6-25 bpm Accelerations: 15X15 Decelerations: None Category: Category I Pain Assessment Pain Scale: 3 Pain Presence: Constant Pain Type: Dull Pain Location: Back Datetime: 09/24/2018 00:14 Stage of : Antepartum Monitor Mode: External Quality: Mild Pattern: Normal: <= 5 Contractions in 10 Minutes Resting Tone O'Donnell: Relaxed Heart Rate FHR Baseline Rate: 140 Monitor Mode: External US Variability: Moderate 6-25 bpm Accelerations: 15X15 Datetime: 09/23/2018 23:41 Monitor Mode: External Quality: Mild Pattern: Normal: <= 5 Contractions in 10 Minutes Resting Tone O'Donnell: Relaxed Heart Rate FHR Baseline Rate: 140 Monitor Mode: External US Variability: Moderate 6-25 bpm Accelerations: 15X15 Category: Category I Datetime: 09/23/2018 23:22 Stage of : Antepartum Monitor Mode: External Quality: Mild Resting Tone O'Donnell: Relaxed Heart Rate FHR Baseline Rate: 140 Monitor Mode: External US Datetime: 09/23/2018 22:51 Stage of : Antepartum Heart Rate FHR Baseline Rate: 150 Monitor Mode: External US Variability: Moderate 6-25 bpm Accelerations: 15X15 Comments: Baby difficult to monitor Pain Assessment Pain Scale: 3 Pain Presence: Constant Datetime: 09/23/2018 22:17 Stage of : Antepartum Monitor Mode: External Quality: Mild Resting Tone O'Donnell: Relaxed Heart Rate FHR Baseline Rate: 140 Monitor Mode: External US Datetime: 09/23/2018 21:49 Stage of : Antepartum Monitor Mode: External Resting Tone O'Donnell: Relaxed Heart Rate FHR Baseline Rate: 140 Monitor Mode: External US Datetime: 09/23/2018 21:39 Stage of : Antepartum Monitor Mode: External Pattern: Normal: <= 5 Contractions in 10 Minutes Resting Tone O'Donnell: Relaxed Heart Rate FHR Baseline Rate: 140 Monitor Mode: External US Comments: Baby audibly active but difficult to monitor d/t activity and pt body habitus. Pain Assessment Pain Scale: 3 Pain Presence: Constant Pain Type: Pressure Pain Location: Sternum Datetime: 09/23/2018 21:13 Monitor Mode: External Pattern: Normal: <= 5 Contractions in 10 Minutes Resting Tone O'Donnell: Relaxed Heart Rate FHR Baseline Rate: 140 Monitor Mode: External US Datetime: 09/23/2018 20:27 Stage of : Antepartum Monitor Mode: External Quality: Mild Pattern: Normal: <= 5 Contractions in 10 Minutes Resting Tone O'Donnell: Relaxed Heart Rate FHR Baseline Rate: 140 Monitor Mode: External US FHR Baseline Changes: No Baseline Change Variability: Moderate 6-25 bpm Accelerations: 15X15 Decelerations: None Category: Category I Datetime: 09/23/2018 19:49 Stage of : Antepartum Monitor Mode: External Quality: Mild Pattern: Normal: <= 5 Contractions in 10 Minutes Resting Tone O'Donnell: Relaxed Heart Rate FHR Baseline Rate: 140 Monitor Mode: External US FHR Baseline Changes: No Baseline Change Variability: Moderate 6-25 bpm Accelerations: 15X15 Decelerations: None Category: Category I Pain Assessment Pain Scale: 4 Pain Presence: Constant Pain Type: Dull Pain Location: Back; Sternum Datetime: 09/23/2018 19:32 Monitor Mode: External US Datetime: 09/23/2018 19:30 Stage of : Antepartum Assessment Type: Ongoing Assessment Maternal Assessment Level of Consciousness: Fully Conscious DTR's/Clonus: DTRs 2+; No Clonus Headache: Denies Blurred Vision: No Respiratory Effort: Unlabored; Regular Rhythm; Equal Expansion Breath Sounds, Left: Clear and Equal Breath Sounds, Right: Clear and Equal Nausea/Vomiting: Denies RUQ Epigastric Pain: Denies Lower Extremities Edema: None Degree: None Upper Extremities Edema: None Facial Edema: None Fall Risk Assessment History of Falling: (0) No Secondary Diagnosis: (0) No Ambulatory Aid: (0) Bedrest/Nurse Assist IV Therapy: (20) Yes Gait: (0) Normal/Bedrest/Immobile Mental Status: (0) Oriented to Own Ability Fall Score: 20 Fall Risk Score Definition: No Risk: No action required Datetime: 09/23/2018 19:00 Maternal Assessment Level of Consciousness: Fully Conscious Headache: Denies Blurred Vision: No Nausea/Vomiting: Denies RUQ Epigastric Pain: Present Facial Edema: None Labor Evaluation Frequency: 0 Monitor Mode: External Pattern: Normal: <= 5 Contractions in 10 Minutes Resting Tone O'Donnell: Relaxed Heart Rate FHR Baseline Rate: 140 Monitor Mode: External US FHR Baseline Changes: No Baseline Change Variability: Moderate 6-25 bpm Accelerations: 15X15 Pain Assessment Pain Scale: 5 Pain Presence: Constant Pain Type: Sharp Pain Location: Abdomen Datetime: 09/23/2018 18:04 Maternal Assessment Level of Consciousness: Fully Conscious Headache: Denies Blurred Vision: No Nausea/Vomiting: Denies RUQ Epigastric Pain: Present Facial Edema: None Labor Evaluation Frequency: x1 Monitor Mode: External Duration (sec)2399: 60 Quality: Mild Resting Tone O'Donnell: Relaxed Heart Rate FHR Baseline Rate: 135 Monitor Mode: External US FHR Baseline Changes: No Baseline Change Variability: Moderate 6-25 bpm Accelerations: 15X15 Pain Assessment Pain Scale: 5 Pain Presence: Constant Pain Type: Sharp Pain Location: Abdomen Datetime: 09/23/2018 17:00 Maternal Assessment Level of Consciousness: Fully Conscious Headache: Denies Blurred Vision: No Nausea/Vomiting: Denies RUQ Epigastric Pain: Present Facial Edema: None Labor Evaluation Frequency: x1 Monitor Mode: External Duration (sec)2399: 80 Quality: Mild Resting Tone O'Donnell: Relaxed Heart Rate FHR Baseline Rate: 135 Monitor Mode: External US FHR Baseline Changes: No Baseline Change Variability: Moderate 6-25 bpm Accelerations: 15X15 Comments: FHTS OFF MONITOR DUE TO PT POSITION Pain Assessment Pain Scale: 3 Pain Presence: Constant Pain Type: Sharp Pain Location: Abdomen Datetime: 09/23/2018 16:15 Maternal Assessment Level of Consciousness: Fully Conscious Headache: Denies Blurred Vision: No Nausea/Vomiting: Denies RUQ Epigastric Pain: Present Facial Edema: None Pain Assessment Pain Scale: 6 Pain Presence: Constant Pain Type: Sharp Pain Location: Abdomen Pain Assessment Comments: PROTONIX GIVEN Datetime: 09/23/2018 16:00 Labor Evaluation Frequency: x1 Monitor Mode: External Duration (sec)2399: 70 Quality: Mild Resting Tone O'Donnell: Relaxed Heart Rate FHR Baseline Rate: 135 Monitor Mode: External US FHR Baseline Changes: No Baseline Change Variability: Moderate 6-25 bpm Accelerations: 15X15 Decelerations: None Datetime: 09/23/2018 15:01 Maternal Assessment Level of Consciousness: Fully Conscious Headache: Denies Blurred Vision: No Nausea/Vomiting: Denies RUQ Epigastric Pain: Present Facial Edema: None Labor Evaluation Frequency: 0 Monitor Mode: External Pattern: Normal: <= 5 Contractions in 10 Minutes Resting Tone O'Donnell: Relaxed Heart Rate FHR Baseline Rate: 140 Monitor Mode: External US FHR Baseline Changes: No Baseline Change Variability: Moderate 6-25 bpm Accelerations: 15X15 Decelerations: None Pain Assessment Pain Scale: 6 Pain Presence: Constant Pain Type: Sharp Pain Location: Abdomen Datetime: 09/23/2018 14:39 Monitor Mode: External Monitor Mode: External US Datetime: 09/23/2018 14:01 Labor Evaluation Frequency: OCC Monitor Mode: External Duration (sec)2399: 40 Quality: Mild Resting Tone O'Donnell: Relaxed Heart Rate FHR Baseline Rate: 135 Monitor Mode: External US FHR Baseline Changes: No Baseline Change Variability: Moderate 6-25 bpm Accelerations: 15X15 Datetime: 09/23/2018 13:00 Labor Evaluation Frequency: x3 Monitor Mode: External Duration (sec)2399: 40-50 Quality: Mild Resting Tone O'Donnell: Relaxed Monitor Mode: External US Comments: FHTS OFF MONITOR DUE TO PT POSITION Pain Assessment Comments: PT ASLEEP, DID NOT AWAKEN Datetime: 09/23/2018 12:01 Maternal Assessment Level of Consciousness: Fully Conscious Headache: Denies Blurred Vision: No Nausea/Vomiting: Denies RUQ Epigastric Pain: Present Facial Edema: None Labor Evaluation Frequency: 0 Monitor Mode: External Pattern: Normal: <= 5 Contractions in 10 Minutes Resting Tone O'Donnell: Relaxed Heart Rate FHR Baseline Rate: 145 Monitor Mode: External US FHR Baseline Changes: No Baseline Change Variability: Moderate 6-25 bpm Accelerations: 10X10 Decelerations: Variable Comments: OCC VARIABLES Pain Assessment Pain Scale: 6 Pain Presence: Constant Pain Type: Sharp Pain Location: Abdomen Datetime: 09/23/2018 11:01 Maternal Assessment Level of Consciousness: Fully Conscious Headache: Denies Blurred Vision: No Nausea/Vomiting: Denies RUQ Epigastric Pain: Present Facial Edema: None Labor Evaluation Frequency: x3 Monitor Mode: External Duration (sec)2399: 40-50 Quality: Mild Pattern: Normal: <= 5 Contractions in 10 Minutes Resting Tone O'Donnell: Relaxed Heart Rate FHR Baseline Rate: 145 Monitor Mode: External US FHR Baseline Changes: No Baseline Change Variability: Moderate 6-25 bpm Decelerations: None Pain Assessment Pain Scale: 6 Pain Presence: Intermittent Pain Type: Sharp Pain Location: Abdomen Datetime: 09/23/2018 10:10 Stage of : Antepartum Monitor Mode: External Pattern: Normal: <= 5 Contractions in 10 Minutes Resting Tone O'Donnell: Relaxed Pain Type: Ache Pain Location: Other Pain Relief Measures: Comfort Measures Datetime: 09/23/2018 09:05 Stage of : Antepartum Labor Evaluation Frequency: 0 Monitor Mode: External Pattern: Normal: <= 5 Contractions in 10 Minutes Resting Tone O'Donnell: Relaxed Heart Rate FHR Baseline Rate: 145 Monitor Mode: External US Variability: Moderate 6-25 bpm Accelerations: 15X15 Decelerations: None Category: Category I Pain Assessment Pain Scale: 6 Pain Presence: Intermittent Pain Type: N/A; Ache Pain Location: Other Pain Goal: 0 Pain Relief Measures: Comfort Measures Datetime: 09/23/2018 08:24 Stage of : Antepartum Labor Evaluation Frequency: 0 Monitor Mode: External Pattern: Normal: <= 5 Contractions in 10 Minutes Heart Rate FHR Baseline Rate: 145 Monitor Mode: External US Variability: Moderate 6-25 bpm Accelerations: 15X15 Decelerations: None Category: Category I Pain Assessment Pain Scale: 6 Pain Presence: Intermittent Pain Type: Ache Pain Location: Other Pain Goal: 0 Pain Relief Measures: Comfort Measures Vaginal Exam Membrane Status: Intact Datetime: 09/23/2018 07:28 Stage of : Antepartum Assessment Type: Ongoing Assessment Maternal Assessment Level of Consciousness: Fully Conscious DTR's/Clonus: DTRs 2+; No Clonus Headache: Denies Blurred Vision: No Respiratory Effort: Unlabored; Regular Rhythm; Equal Expansion Breath Sounds, Left: Clear and Equal Breath Sounds, Right: Clear and Equal Nausea/Vomiting: Denies RUQ Epigastric Pain: Denies Lower Extremities Edema: None Degree: None Upper Extremities Edema: None Facial Edema: None Temperature Route: Oral Fall Risk Assessment History of Falling: (0) No Secondary Diagnosis: (0) No Ambulatory Aid: (0) Bedrest/Nurse Assist IV Therapy: (0) No Gait: (0) Normal/Bedrest/Immobile Mental Status: (0) Oriented to Own Ability Fall Score: 0 Fall Risk Score Definition: No Risk: No action required Monitor Mode: External Pattern: Normal: <= 5 Contractions in 10 Minutes Resting Tone O'Donnell: Relaxed Heart Rate FHR Baseline Rate: 125 Monitor Mode: External US Variability: Moderate 6-25 bpm Accelerations: 15X15 Decelerations: None Category: Category I Pain Assessment Pain Scale: 6 Pain Presence: Intermittent Pain Type: Ache Pain Location: Other Pain Goal: 0 Pain Relief Measures: Comfort Measures Datetime: 09/23/2018 06:45 Stage of : Antepartum Maternal Assessment Level of Consciousness: Fully Conscious Labor Evaluation Frequency: 1 Monitor Mode: External Duration (sec)2399: 60 Resting Tone O'Donnell: Relaxed Heart Rate FHR Baseline Rate: 145 Monitor Mode: External US Variability: Moderate 6-25 bpm Accelerations: 15X15 Decelerations: Variable Category: Category I Pain Assessment Pain Scale: 3 Pain Goal: 3 Datetime: 09/23/2018 05:51 Stage of : Antepartum Maternal Assessment Level of Consciousness: Fully Conscious Labor Evaluation Frequency: 1 Monitor Mode: External Duration (sec)2399: 60 Resting Tone O'Donnell: Relaxed Heart Rate FHR Baseline Rate: 145 Monitor Mode: External US Variability: Moderate 6-25 bpm Accelerations: 15X15 Decelerations: Variable Category: Category I Pain Assessment Pain Scale: 3 Pain Goal: 3 Datetime: 09/23/2018 05:00 Stage of : Antepartum Maternal Assessment Level of Consciousness: Fully Conscious Labor Evaluation Frequency: 0 Monitor Mode: External Duration (sec)2399: 0 Resting Tone O'Donnell: Relaxed Heart Rate FHR Baseline Rate: 145 Monitor Mode: External US Variability: Moderate 6-25 bpm Accelerations: 15X15 Decelerations: Variable Category: Category II Pain Assessment Pain Scale: 3 Pain Goal: 3 Datetime: 09/23/2018 04:00 Stage of : Antepartum Maternal Assessment Level of Consciousness: Fully Conscious Labor Evaluation Frequency: 0 Monitor Mode: External Duration (sec)2399: 0 Resting Tone O'Donnell: Relaxed Heart Rate FHR Baseline Rate: 145 Monitor Mode: External US Variability: Moderate 6-25 bpm Accelerations: 15X15 Decelerations: Variable Pain Assessment Pain Scale: 3 Pain Goal: 3 Pain Assessment Comments: PT SLEEPING Datetime: 09/23/2018 03:00 Stage of : Antepartum Maternal Assessment Level of Consciousness: Fully Conscious Labor Evaluation Frequency: 0 Monitor Mode: External Duration (sec)2399: 0 Resting Tone O'Donnell: Relaxed Heart Rate FHR Baseline Rate: 145 Monitor Mode: External US Variability: Moderate 6-25 bpm Accelerations: 15X15 Decelerations: Variable Category: Category II Pain Assessment Pain Scale: 3 Pain Location: Back Pain Goal: 3 Datetime: 09/23/2018 02:00 Stage of : Antepartum Maternal Assessment Level of Consciousness: Fully Conscious Labor Evaluation Frequency: 0 Monitor Mode: External Duration (sec)2399: 0 Resting Tone O'Donnell: Relaxed Heart Rate FHR Baseline Rate: 145 Monitor Mode: External US Variability: Moderate 6-25 bpm Accelerations: 15X15 Decelerations: Variable Category: Category II Pain Assessment Pain Scale: 3 Pain Location: Back Pain Goal: 3 Pain Assessment Comments: PT SLEEPING Datetime: 09/23/2018 01:00 Stage of : Antepartum Maternal Assessment Level of Consciousness: Fully Conscious Labor Evaluation Frequency: 0 Monitor Mode: External Duration (sec)2399: 0 Resting Tone O'Donnell: Relaxed Heart Rate FHR Baseline Rate: 145 Monitor Mode: External US Variability: Moderate 6-25 bpm Accelerations: 15X15 Decelerations: Variable Category: Category II Pain Assessment Pain Scale: 3 Pain Presence: Constant Pain Type: Ache Pain Location: Back Pain Goal: 3 Pain Relief Measures: Comfort Measures Vaginal Exam Membrane Status: Intact Datetime: 09/23/2018 00:20 Stage of : Antepartum Maternal Assessment Level of Consciousness: Fully Conscious Labor Evaluation Frequency: 0 Monitor Mode: External Duration (sec)2399: 0 Resting Tone O'Donnell: Relaxed Heart Rate FHR Baseline Rate: 150 Monitor Mode: External US Variability: Moderate 6-25 bpm Accelerations: 15X15 Decelerations: Variable Category: Category II Pain Assessment Pain Scale: 3 Pain Presence: Constant Pain Type: Ache Pain Location: Back Pain Goal: 3 Pain Relief Measures: Comfort Measures Vaginal Exam Membrane Status: Intact Datetime: 09/22/2018 23:20 Stage of : Antepartum Maternal Assessment Level of Consciousness: Fully Conscious Labor Evaluation Frequency: 0 Monitor Mode: External Duration (sec)2399: 0 Resting Tone O'Donnell: Relaxed Heart Rate FHR Baseline Rate: 150 Monitor Mode: External US Variability: Moderate 6-25 bpm Accelerations: 15X15 Decelerations: Variable Category: Category II Pain Assessment Pain Scale: 3 Pain Presence: Constant Pain Type: Ache Pain Location: Back Pain Goal: 3 Pain Relief Measures: Comfort Measures Vaginal Exam Membrane Status: Intact Datetime: 09/22/2018 22:20 Stage of : Antepartum Maternal Assessment Level of Consciousness: Fully Conscious Labor Evaluation Frequency: 0 Monitor Mode: External Duration (sec)2399: 0 Resting Tone O'Donnell: Relaxed Heart Rate FHR Baseline Rate: 150 Monitor Mode: External US Variability: Moderate 6-25 bpm Accelerations: 15X15 Decelerations: Variable Category: Category II Pain Assessment Pain Scale: 3 Pain Presence: Constant Pain Type: Ache Pain Location: Back Pain Goal: 3 Pain Relief Measures: Comfort Measures Vaginal Exam Membrane Status: Intact Datetime: 09/22/2018 21:20 Stage of : Antepartum Maternal Assessment Level of Consciousness: Fully Conscious DTR's/Clonus: DTRs 1+ Headache: Denies Breath Sounds, Left: Clear and Equal Breath Sounds, Right: Clear and Equal Nausea/Vomiting: Denies RUQ Epigastric Pain: Denies Labor Evaluation Frequency: 0 Monitor Mode: External Duration (sec)2399: 0 Resting Tone O'Donnell: Relaxed Heart Rate FHR Baseline Rate: 145 Monitor Mode: External US Variability: Moderate 6-25 bpm Accelerations: 15X15 Decelerations: Variable Category: Category II Pain Assessment Pain Scale: 3 Pain Presence: Constant Pain Type: Ache Pain Location: Back Pain Goal: 3 Vaginal Exam Membrane Status: Intact Datetime: 09/22/2018 20:22 Assessment Type: Ongoing Assessment Maternal Assessment Level of Consciousness: Fully Conscious DTR's/Clonus: DTRs 1+ Headache: Denies Blurred Vision: No Respiratory Effort: Unlabored Breath Sounds, Left: Clear and Equal Breath Sounds, Right: Clear and Equal Nausea/Vomiting: Denies RUQ Epigastric Pain: Denies Lower Extremities Edema: None Upper Extremities Edema: None Facial Edema: None Fall Risk Assessment History of Falling: (0) No Secondary Diagnosis: (0) No Ambulatory Aid: (0) Bedrest/Nurse Assist IV Therapy: (0) No Gait: (0) Normal/Bedrest/Immobile Mental Status: (0) Oriented to Own Ability Fall Score: 0 Fall Risk Score Definition: No Risk: No action required Datetime: 09/22/2018 20:20 Stage of : Antepartum Maternal Assessment Level of Consciousness: Fully Conscious DTR's/Clonus: DTRs 1+ Headache: Denies Breath Sounds, Left: Clear and Equal Breath Sounds, Right: Clear and Equal Nausea/Vomiting: Denies RUQ Epigastric Pain: Denies Labor Evaluation Frequency: 0 Monitor Mode: External Duration (sec)2399: 0 Resting Tone O'Donnell: Relaxed Heart Rate FHR Baseline Rate: 145 Monitor Mode: External US Variability: Moderate 6-25 bpm Accelerations: 15X15 Decelerations: Variable Category: Category II Pain Assessment Pain Scale: 3 Pain Presence: Constant Pain Type: Ache Pain Location: Back Pain Goal: 3 Pain Relief Measures: Comfort Measures Vaginal Exam Membrane Status: Intact Datetime: 09/22/2018 19:20 Stage of : Antepartum Maternal Assessment Level of Consciousness: Fully Conscious Temperature Route: Oral Labor Evaluation Frequency: 0 Monitor Mode: External Duration (sec)2399: 0 Resting Tone O'Donnell: Relaxed Interventions: Side to Side; Oxygen Applied Heart Rate FHR Baseline Rate: 135 Monitor Mode: External US Variability: Moderate 6-25 bpm Accelerations: 15X15 Decelerations: Variable Category: Category II Pain Assessment Pain Scale: 3 Pain Presence: Constant Pain Type: Ache Pain Location: Back Pain Goal: 3 Pain Relief Measures: Comfort Measures Vaginal Exam Membrane Status: Intact Datetime: 09/22/2018 18:22 Assessment Type: Ongoing Assessment Datetime: 09/22/2018 18:00 Maternal Assessment Level of Consciousness: Fully Conscious DTR's/Clonus: DTRs 1+ Headache: Denies Blurred Vision: No Respiratory Effort: Unlabored Breath Sounds, Left: Clear and Equal Breath Sounds, Right: Clear and Equal Nausea/Vomiting: Denies RUQ Epigastric Pain: Denies Facial Edema: None Labor Evaluation Frequency: 0 Monitor Mode: External Duration (sec)2399: 0 Resting Tone O'Donnell: Relaxed Heart Rate FHR Baseline Rate: 145 Monitor Mode: External US Variability: Moderate 6-25 bpm Accelerations: 15X15 Decelerations: Variable Category: Category II Pain Assessment Pain Scale: 3 Pain Presence: Constant Pain Type: Ache Pain Location: Back Pain Goal: 3 Pain Relief Measures: Comfort Measures Vaginal Exam Membrane Status: Intact Datetime: 09/22/2018 16:53 Maternal Assessment Level of Consciousness: Fully Conscious DTR's/Clonus: DTRs 1+ Headache: Denies Blurred Vision: No Respiratory Effort: Unlabored Nausea/Vomiting: Denies RUQ Epigastric Pain: Denies Facial Edema: None Labor Evaluation Frequency: 0 Monitor Mode: External Duration (sec)2399: 0 Resting Tone O'Donnell: Relaxed Heart Rate FHR Baseline Rate: 140 Monitor Mode: External US Variability: Moderate 6-25 bpm Accelerations: 15X15 Decelerations: None Category: Category I Pain Assessment Pain Scale: 3 Pain Presence: Constant Pain Type: Ache Pain Location: Back Pain Goal: 3 Pain Relief Measures: Comfort Measures Vaginal Exam Membrane Status: Intact Datetime: 09/22/2018 15:58 Maternal Assessment Level of Consciousness: Fully Conscious DTR's/Clonus: DTRs 1+ Headache: Denies Blurred Vision: No Respiratory Effort: Unlabored Breath Sounds, Left: Clear and Equal Breath Sounds, Right: Clear and Equal Nausea/Vomiting: Hx of Nausea/Vomiting RUQ Epigastric Pain: Denies Facial Edema: None Labor Evaluation Frequency: 0 Monitor Mode: External Duration (sec)2399: 0 Resting Tone O'Donnell: Relaxed Heart Rate FHR Baseline Rate: 150 Monitor Mode: External US Variability: Moderate 6-25 bpm Accelerations: 10X10 Decelerations: None Category: Category I Pain Assessment Pain Scale: 3 Pain Presence: Constant Pain Type: Ache Pain Location: Back Pain Goal: 3 Pain Relief Measures: Comfort Measures Vaginal Exam Membrane Status: Intact Datetime: 09/22/2018 15:00 Maternal Assessment Level of Consciousness: Fully Conscious DTR's/Clonus: DTRs 1+ Headache: Denies Blurred Vision: No Respiratory Effort: Unlabored Nausea/Vomiting: Denies RUQ Epigastric Pain: Denies Facial Edema: None Labor Evaluation Frequency: 0 Monitor Mode: External Duration (sec)2399: 0 Resting Tone O'Donnell: Relaxed Heart Rate FHR Baseline Rate: 145 Monitor Mode: External US Variability: Moderate 6-25 bpm Accelerations: 10X10 Decelerations: None Category: Category I Comments: pt unable to sit still in bed, obease, frequesnt urine Pain Assessment Pain Scale: 3 Pain Presence: Constant Pain Type: Ache Pain Location: Back Pain Goal: 3 Pain Relief Measures: Comfort Measures Vaginal Exam Membrane Status: Intact Datetime: 09/22/2018 12:30 Stage of : OB Triage Maternal Assessment Level of Consciousness: Fully Conscious Labor Evaluation Frequency: NONE Monitor Mode: External Resting Tone O'Donnell: Relaxed Heart Rate FHR Baseline Rate: 135 Monitor Mode: External US Variability: Moderate 6-25 bpm Accelerations: 10X10 Decelerations: None Pain Assessment Pain Scale: 0 Pain Goal: 3 Vaginal Exam Membrane Status: Intact Vaginal Bleeding: None Datetime: 09/22/2018 11:31 Fall Score: 0 Fall Risk Score Definition: No Risk: No action required Datetime: 09/22/2018 11:30 Time of Arrival: 09/22/2018 14:40 EGA: 27.4 Arrived By: Ambulatory
[2018-11-24] MEDS ORDERED: OXYTOCIN 30 UNITS/LR 500 ML IV PRN ×2 (12:30→14:00)
[2018-11-24] MEDS ORDERED: LIDOCAINE 1% (MPF) 30 ML INJ INJ PRN (12:30)
[2018-11-24] MEDS ORDERED: AMPICILLIN 2 GM/NS (PMX) 100 ML IV ONE (12:30)
[2018-11-24] MEDS ORDERED: MISOPROSTOL 200 MCG TAB PR PRN ×2 (12:30→14:00)
[2018-11-24] MEDS ORDERED: METHYLERGONOVINE 0.2 MG INJ IM PRN (12:30)
[2018-11-24] MEDS ORDERED: BUTORPHANOL 2 MG INJ IV PRN (12:30)
[2018-11-24] MEDS ORDERED: OXYTOCIN 30 UNITS/LR 500 ML IV SCH ×3 (12:30→13:47)
[2018-11-24] MEDS ORDERED: BUTORPHANOL 1 MG INJ IV PRN (12:30)
[2018-11-24] MEDS ORDERED: CARBOPROST 250 MCG INJ IM PRN ×2 (12:30→14:00)
[2018-11-24] MEDS ORDERED: HYDROCODONE/APAP (5/325) TAB PO PRN (14:00)
[2018-11-24] MEDS ORDERED: NACL 0.9% 3 ML SYG IV SCH (14:00)
[2018-11-24] MEDS ORDERED: WITCH HAZEL/GLYCERIN PAD PR PRN (14:00)
[2018-11-24] MEDS ORDERED: DIPHENHYDRAMINE 25 MG CAP PO PRN (14:00)
[2018-11-24] MEDS ORDERED: ZOLPIDEM 5 MG TAB PO PRN (14:00)
[2018-11-24] MEDS ORDERED: ONDANSETRON 4 MG INJ IV PRN (14:00)
[2018-11-24] MEDS ORDERED: LANOLIN HPA 1 PKT TOP PRN (14:00)
[2018-11-24] MEDS: IBUPROFEN 600 MG TAB PO SCH ×3 (14:14→23:57)
[2018-11-24] MEDS: PRENATAL VITAMIN PO SCH (15:50)
[2018-11-24] MEDS: SENNA/DOCUSATE NA (8.6MG/50MG) TAB PO SCH ×2 (15:50→21:09)
[2018-11-24 16:23] VITALS: BP 125/67; PULSE 89; RESP 20
[2018-11-24] MEDS ORDERED: AMPICILLIN 1 GM/NS (PMX) 50 ML IV SCH (16:30)
--- NOTE | 2018-11-24 17:30 | HP ---
Date/Time of Note Date/Time of Note DATE: 11/24/18 TIME: 17:25 OB - History Hx of Present Chief Complaint: contractions Estimated Due Date: Dec 18, 2018 : 2 Para: 1 Spontaneous : 0 Therapeutic : 0 Care: Good Care Ultrasounds: Normal mid trimester US Obstetrical Complications: None Medical Complications: None Past Family/Social History * Past Medical, Surgical, Family and Obstetric Histories reviewed from chart. GBS Status: Positive OB Admission Exam Vital Signs Vital Signs Vital Signs Date Temp Pulse Resp B/P (MAP) Pulse Ox O2 O2 Flow FiO2 Time Delivery Rate 11/24/18 98.7 89 20 125/67 99 Room Air 16:23 (86) Physical Exam HEENT: WNL Heart: Rhythm Normal Lungs: Clear, Equal Abdomen: WNL Extremities: Normal Reflexes: Normal Cervical Dilatation: 5cm Effacement: 75% Station: -1 Membranes: Intact Heart Rate: 120's Accelerations: Accelerations Present Decelerations: No Decelerations Varibility: Moderate Last 72 hours Lab Results CBC & BMP 11/24/18 11:55 OB Assessment/Plan Reason for admission: active labor Plan: Expectant Management LUIS FELIPE COSTA MD Nov 24, 2018 17:29
--- NOTE | 2018-11-24 19:00 | LDN ---
Date/Time of Note Date/Time of Note DATE: 11/24/18 TIME: 18:58 Delivery Summary 11/24/2018 Weeks of Gestation 36 weeks and 4 days Placenta Delivered: Spontaneously Meconium: none Episiotomy: No Indication for episiotomy N./A Perineal laceration: 1 Laceration repair: first degree laceration, repaired using 3-0 chromic Anesthesia type: None Estimated blood loss: 200 Sponge & Needle done & correct: Yes All needle counts correct: Yes Any foreign bodies felt in the: No Infant Delivery Information Sex Infant Sex: female Apgars 1 Minute: 8 5 Minute: 9 Suctioning Nose & mouth suctioned at hood: Yes Delee suction performed: Yes Umbilical Cord Umbilical cord with: 3 Vessels Cord presentations: no nuchal cord Cord Blood was obtained: Yes SRIKANTH BARCLAY MD Nov 24, 2018 19:00
[2018-11-24 21:00] VITALS: BP 129/57; PULSE 88; RESP 18
[2018-11-25 04:00] VITALS: BP 117/69; PULSE 94; RESP 18
[2018-11-25] MEDS: IBUPROFEN 600 MG TAB PO SCH ×4 (06:03→23:46)
[2018-11-25 07:30] VITALS: BP 116/81; PULSE 90; RESP 18
[2018-11-25] MEDS: PRENATAL VITAMIN PO SCH (09:47)
[2018-11-25] MEDS: SENNA/DOCUSATE NA (8.6MG/50MG) TAB PO SCH ×2 (09:47→21:36)
[2018-11-25] MEDS ORDERED: INFLUENZA VIRUS VACCINE 0.5 ML (DISPENSING) IM* ONE (13:00)
--- NOTE | 2018-11-25 14:24 | DS ---
Date/Time of Note Date/Time of Note DATE: 11/25/18 TIME: 14:24 Obstetrical Discharge Record Final Diagnosis Final Diagnosis: delivered Condition on Discharge Physical Assessment Voiding: Yes Bowel Movement: Yes Breast: Soft, non-tender, Filling Fundus: Firm Calf Tenderness: No Patient Condition: Stable LUIS FELIPE COSTA MD Nov 25, 2018 14:24
[2018-11-25 15:30] VITALS: BP 119/79; PULSE 80; RESP 18
[2018-11-25 21:00] VITALS: BP 118/70; PULSE 94; RESP 17
[2018-11-26 04:00] VITALS: BP 120/69; PULSE 76; RESP 18
[2018-11-26] MEDS: IBUPROFEN 600 MG TAB PO SCH (05:51)
[2018-11-26 07:40] VITALS: BP 114/62; PULSE 73; RESP 16
[2018-11-26] MEDS ORDERED: MEASLES,MUMPS,RUBELLA VACCINE INJ SC* ONE (09:00)
[2018-11-26] MEDS ORDERED: DIPHTH/TET/ACEL PERTUSS (ADULT) 0.5 ML VIAL IM* ONE (09:00)
[2018-11-26] MEDS ORDERED: VARICELLA VACCINE LIVE/PF 1,350 UNIT/0.5 ML ML SC* ONE (09:00)
[2018-11-26] MEDS: PRENATAL VITAMIN PO SCH (09:10)
[2018-11-26] MEDS: SENNA/DOCUSATE NA (8.6MG/50MG) TAB PO SCH (09:10)
== END 2018-11-26 10:35 | disposition home or self-care (01) | DRG 807 ==
LOC: OBT 11:27 → L-D 11:27 → OBT 12:00 → L-D 12:00 → PP1 15:54
PROVIDERS: ADMIT Obstetrics & Gynecology; ATTEND Obstetrics & Gynecology
PROC: 10E0XZZ Delivery of Products of Conception, External Approach (ICD-10-PCS; principal; 2018-11-24)
PROC: 0HQ9XZZ Repair Perineum Skin, External Approach (ICD-10-PCS; 2018-11-24)
DX: O60.14X0 Preterm labor third trimester with preterm delivery third trimester, not applicable or unspecified (principal); Z37.0 Single live birth; O99.824 Streptococcus B carrier state complicating childbirth; O70.0 First degree perineal laceration during delivery; Z3A.36 36 weeks gestation of pregnancy; Z23 Encounter for immunization
CPT/HCPCS: 76815; 80307; 81001; 85014; 85018; 85025; 85610; 85730; 86592; 86703; 86762; 86850; 86900; 86901; 87340; 90686; 90715; 90716; 99464; G0463; J0290; J2590; J7120